=== PATIENT | female | born 1965 | race Caucasian/White ===

== ENCOUNTER 2016-12-08 00:34 | Emergency (ER) | payer MEDICAID ==
[~2016-12-08] VITALS: Ht 160 cm; Wt 74.0 kg
[~2016-12-08 00:34] MED LIST: ASPI81TA3 PO; LEVO500T72 PO; NIT4 SL; OMEP20CA16 PO
[2016-12-08 00:39] VITALS: Ht 160 cm; Wt 74.0 kg
--- NOTE | 2016-12-08 03:19 | RADRPT ---
PROCEDURE: CT Brain without contrast. CLINICAL INDICATION: Headache TECHNIQUE: Axial images from the skull base through the vertex without IV contrast. Multiplanar r eformatted images were made. Images were reviewed on a PACS workstation. The CTDIvol is 45.0 Y mGy and the DLP is 810.25 mGycm. One or more of the following dose reduction techniques were used: aut omated exposure control, adjustment of the mA and/or kV according to patient size, or use of iterati ve reconstruction technique. COMPARISON: None. FINDINGS: The ventricles and cisterns are normal for age. There is no evidence for territorial infarction or intracranial hemorrhage. No mass or midline shift is seen. No extra-axial fluid collection is seen . The visualized paranasal sinuses and mastoids are clear. IMPRESSION: No definite acute intracranial abnormality. RPTAT: [facility] Physician Raman Date Time Electronically viewed and signed by Physician Raman on 12/08/2016 03:19 LE/
[2016-12-08] MEDS ORDERED: BUTA1CAP39 PO (03:35)
--- NOTE | 2016-12-08 03:35 | ERD ---
ER Documentation Chief Complaint Date/Time DATE: 12/08/16 TIME: 03:32 Chief Complaint headache x 5 days HPI 31-year-old female presents here in emergency department for complaint of headache for 5 days. Patient described the headache as throbbing pain, 4/10 scale, worse when seeing light. Patient denies any changes in vision. Patient denies any nausea or vomiting. Patient did not have any head injury. Patient denies any fever or chills. Patient denies any nasal congestion. Patient denies any focal weakness numbness or tingling. Patient denies any changes in balance or memory. ROS All systems reviewed and are negative except as per history of present illness. Medications Home Meds Active Scripts Zigbbawmacyvv-Aonyxxyvcj-Vsjxndbs-Codeine* (Fioricet w/ Codeine*) [id number]- 30MG Capsule, 1 CAP PO Q6H Y for PAIN LEVEL 1-5, #20 CAP Prov:BEREKET SIDDIQI [employer] 12/08/16 Levofloxacin* (Levaquin*) 500 Mg Tablet, 500 MG PO DAILY for 7 Days, TAB Prov:TARIK CHAPMAN 05/24/15 Nitroglycerin* (Nitrostat*) 25 Tab Subl, 0.4 MG SL Q5M Y for CHEST PAIN, #30 Prov:TARIK CHAPMAN 05/24/15 Aspirin (Aspirin) 81 Mg Chew, 81 MG PO DAILY for 30 Days Prov:TARIK CHAPMAN 05/24/15 Reported Medications Omeprazole* (Omeprazole*) 20 Mg Capsule.dr, 20 MG PO DAILY, CAP 05/23/15 Allergies Allergies: Coded Allergies: No Known Allergies (Verified Allergy, 08/16/11) PMhx/Soc History of Surgery: Yes (hernia repair, gall stones) Anesthesia Reaction: No Hx Neurological Disorder: No Hx Respiratory Disorders: No Hx Cardiac Disorders: No Hx Psychiatric Problems: No Hx Miscellaneous Medical Probl: No Hx Alcohol Use: No Hx Substance Use: No Hx Tobacco Use: No Smoking Status: Never smoker FmHx Family History: No coronary disease, No diabetes, No other Physical Exam Vitals Vital Signs Date Time Temp Pulse Resp B/P Pulse Ox O2 Delivery O2 Flow Rate FiO2 12/08/16 04:21 98.6 80 20 149/79 100 Room Air 12/08/16 00:39 97.8 85 20 148/75 99 Physical Exam GENERAL: The patient is well developed and appropriate for usual state of health, in no apparent distress. CHEST: Clear to auscultation bilaterally. There are no rales, wheezes or rhonchi. HEART: Regular rate and rhythm. No murmurs, clicks, rubs or gallops. No S3 or S4. ABDOMEN: Soft, nontender and nondistended. Good bowel sounds. No rebound or guarding. No gross peritonitis. No gross organomegaly or masses. No Crespo sign or McBurney point tenderness. BACK: No midline or flank tenderness. EXTREMITIES: Equal pulses bilaterally. There is no peripheral clubbing, cyanosis or edema. No focal swelling or erythema. Full range of motion. Grossly neurovascularly intact. NEURO: Alert and oriented. Cranial nerves 2-12 intact. Motor strength in all 4 extremities with 5/5 strength. Sensation grossly intact. Normal speech and gait. Negative Romberg sign. Negative pronator drift. SKIN: There is no apparent rash or petechia. The skin is warm and dry. HEMATOLOGIC AND LYMPHATIC: There is no evidence of excessive bruising or lymphedema. No gross cervical, axillary, or inguinal lymphadenopathy. Results 24 hrs Current Medications Medications (Trade) Dose Ordered Sig/Camilo Route PRN Reason Start Time Stop Time Status Last Admin Dose Admin Acetam/Butalbital/ Caffeine/Codeine (Fioricet/ Codeine) 1 cap ONCE ONCE PO 12/08/16 04:00 12/08/16 04:01 DC 12/08/16 03:48 Patient was given medication for pain here in emergency department, after treatment, patient verbalized feeling much better. Patient's pain is improved. PROCEDURE: CT Brain without contrast. CLINICAL INDICATION: Headache TECHNIQUE: Axial images from the skull base through the vertex without IV contrast. Multiplanar reformatted images were made. Images were reviewed on a PACS workstation. The CTDIvol is 45.0 Y mGy and the DLP is 810.25 mGycm. One or more of the following dose reduction techniques were used: automated exposure control, adjustment of the mA and/or kV according to patient size, or use of iterative reconstruction technique. COMPARISON: None. FINDINGS: The ventricles and cisterns are normal for age. There is no evidence for territorial infarction or intracranial hemorrhage. No mass or midline shift is seen. No extra-axial fluid collection is seen. The visualized paranasal sinuses and mastoids are clear. IMPRESSION: No definite acute intracranial abnormality. RPTAT: [facility] Isidra Guerra Physician Date Time Electronically viewed and signed by Isidra Guerra, Physician on 12/08/2016 03 :19 LE/ CC: BEREKET SIDDIQI NP Procedures/MDM Medical Decision Making: Patient's headache most active consistent with tension headache or migraine headache. There is low suspicion for neurological emergencies at this time since patients neurologic exam is normal. Patient did not have any altered level consciousness, vomiting, changes in balance or memory and did not have any head injury. Patients CT scan of the head does not show any neurological emergencies at this time. Patient was given for Fioricet with codeine, advised to follow-up with primary care doctor 2-3 days for reevaluation and symptoms, see a neurologist specialist. Patient is advised to return to emergency department for worsening symptoms. Departure Diagnosis: Primary Impression: Headache Headache type: unspecified Headache chronicity pattern: acute headache Intractability: not intractable Qualified Code: R51 - Acute nonintractable headache, unspecified headache type Condition: Stable Patient Instructions: Self-Care for Headaches Additional Instructions: Patient was given for Fioricet with codeine, advised to follow-up with primary care doctor 2-3 days for reevaluation and symptoms, see a neurologist specialist. Patient is advised to return to emergency department for worsening symptoms. BEREKET SIDDIQI NP Dec 08, 2016 03:35
[2016-12-08] MEDS ORDERED: ACET/BUTAL/CAFF/CODEINE CAP PO ONE (04:00)
[2016-12-08 04:21] VITALS: BP 149/79; PULSE 80; RESP 20; TEMP 98.6
== END 2016-12-08 04:22 | disposition home or self-care (01) ==
LOC: FTE 00:34
DX: R51 Headache (principal); Z79.82 Long term (current) use of aspirin
CPT/HCPCS: 70450; Z7610